=== PATIENT | male | born 1945 | race Caucasian/White ===

== ENCOUNTER → 2020-05-13 | Outpatient (CLI) | payer MEDICARE | END | disposition home or self-care (01) | LOC: SHCH 12:38 | PROVIDERS: ATTEND Internal Medicine Cardiovascular Disease | DX: T82.110A Breakdown (mechanical) of cardiac electrode, initial encounter (principal) | CPT/HCPCS: 93306; 93356 ==

== ENCOUNTER → 2020-06-24 | Outpatient (CLI) | payer OTHER | END | disposition home or self-care (01) | LOC: OIH 09:17 | PROVIDERS: ATTEND Internal Medicine Cardiovascular Disease | DX: Z13.6 Encounter for screening for cardiovascular disorders (principal) | CPT/HCPCS: 75571 ==

== ENCOUNTER 2021-03-06 07:33 | Day surgery (SDC) | payer MEDICARE ==
[2021-02-28 12:22] LABS: BASOPHILS % (AUTO) 0.6 % (0.0-5.0); EOSINOPHILS % (AUTO) 2.3 % (0.0-8.0); HEMATOCRIT 39.7 % (42-54); LYMPHOCYTES % (AUTO) 14.8 % (21.0-51.0); MEAN CORPUSCULAR HEMOGLOBIN 29.3 pg (27.0-33.0); MEAN CORPUSCULAR VOLUME 86.3 fL (79-99); NEUTROPHILS % (AUTO) 69.9 % (40.0-77.0); PLATELET COUNT (AUTO) 328 K/uL (130-400); RED CELL DISTRIBUTION WIDTH 12.9 % (11.0-15.5); WHITE BLOOD COUNT (AUTO) 7.1 K/uL (4.8-10.8)
[2021-02-28 12:23] LABS: APPEARANCE,URINE Clear (CLEAR); BILIRUBIN,URINE Negative (NEGATIVE); COLOR,URINE Yellow (YELLOW); GLUCOSE, URINE (UA) Negative (NEGATIVE); KETONES,URINE >=80 mg/dL (NEGATIVE); LEUKOCYTE ESTERASE ,URINE Negative (NEGATIVE); NITRATE,URINE Negative (NEGATIVE); OCCULT BLOOD,URINE Negative (NEGATIVE); PROTEIN,URINE Negative (NEGATIVE)
[2021-02-28 12:36] LABS: CREATININE 0.9 mg/dL (0.5-1.5); POTASSIUM 3.4 mmol/L (3.5-5.1)
[2021-02-28 12:38] LABS: INR 1.01 (0.85-1.15)
[2021-02-28 12:39] LABS: PARTIAL THROMBOPLASTIN TIME 37.9 SEC (26.3-35.5)
[2021-02-28 12:53] LABS: BACTERIA,URINE Rare /HPF (None Seen); RBC,URINE 0-1 /HPF (0-1); WBC,URINE 0-1 /HPF (0-1)
[2021-02-28 12:54] LABS: SQUAMOUS EPITHELIAL CELL,UR None Seen /HPF (0-2)
[2021-03-05 10:20] VITALS: BP 147/74
[~2021-03-06] VITALS: Ht 177.8 cm; Wt 122.5 kg
[2021-03-06] VITALS (13 sets, daily range): BP systolic 137–178; BP diastolic 56–78
[~2021-03-06 07:33] MED LIST: AMLO-257 PO; ASPI-1005 PO; CARV12.511 PO; GABA300S PO; GLUC-56 PO; MAGN100T5 PO; MELA10TA2 PO; OLME-11 PO; TADA5TAB13 PO; TAMS-1 PO; THYROID NP PO; TIZA2CAP9 PO; TOLT4CAP13 PO
[2021-03-06] MEDS: GENTAMICIN 80 MG/NS 100 ML PB 100 ML IV SCH ×2 (09:50→10:40)
[2021-03-06] MEDS: CEFTRIAXONE SODIUM 1 GM IVP SCH ×2 (09:50→14:43)
[2021-03-06] MEDS ORDERED: LACTATED RINGERS 1000ML 1,000 ML IV ONE (09:52)
[2021-03-06] MEDS ORDERED: DEXAMETHASONE SOD PHOSPHATE 10MG/ML 1ML VIAL ONE (10:59)
[2021-03-06] MEDS ORDERED: SUCCINYLCHOLINE 200MG/10ML SYR ONE (10:59)
[2021-03-06] MEDS ORDERED: LIDOCAINE PF 100MG/5ML (2%) SYRINGE 5ML ONE (10:59)
[2021-03-06] MEDS ORDERED: MIDAZOLAM HCL 1 MG/ML 2ML VIAL ONE (10:59)
[2021-03-06] MEDS ORDERED: ROCURONIUM 10MG/1ML SYR 10 MG/ML ML ONE (10:59)
[2021-03-06] MEDS ORDERED: NEOSTIGMINE 5MG/5ML SYR IV ONE (10:59)
[2021-03-06] MEDS ORDERED: GLYCOPYRROLATE 1 MG/5 ML SYRINGE ONE (10:59)
[2021-03-06] MEDS ORDERED: PROPOFOL 10 MG/ML 20ML VIAL IV ONE (10:59)
[2021-03-06] MEDS ORDERED: FENTANYL CITRATE PF 50 MCG/1 ML 2ML VIAL ONE (11:00)
== END 2021-03-06 13:40 | disposition home or self-care (01) ==
LOC: DAH 07:33
PROVIDERS: ATTEND Urology
DX: N40.1 Benign prostatic hyperplasia with lower urinary tract symptoms (principal); Z20.822 Contact with and (suspected) exposure to COVID-19; N32.89 Other specified disorders of bladder; I10 Essential (primary) hypertension; E66.9 Obesity, unspecified; E78.5 Hyperlipidemia, unspecified; Z90.49 Acquired absence of other specified parts of digestive tract; Z98.890 Other specified postprocedural states; Z79.01 Long term (current) use of anticoagulants
CPT/HCPCS: 36415; 52648; 71045; 80048; 81001; 85025; 85610; 85730; 87088; 87635; 93005; A4215; A4221; A4222; A4223; A4354; A4358; A4600; A4663; A6260; C9803; J0330; J0696; J1100; J1580; J2001; J2250; J2704; J2710; J3010; J3490; J7120 ×2

== ENCOUNTER → 2021-12-25 | Outpatient (CLI) | payer MEDICARE ==
[~2021-12-25] MED LIST changes: -TOLT4CAP13 PO; +TOLT4CAP27 PO
== END | disposition home or self-care (01) ==
LOC: SHCH 09:35
PROVIDERS: ATTEND Internal Medicine Cardiovascular Disease
DX: I36.1 Nonrheumatic tricuspid (valve) insufficiency (principal); I11.9 Hypertensive heart disease without heart failure; Z95.2 Presence of prosthetic heart valve
CPT/HCPCS: 93306

== ENCOUNTER → 2022-02-18 | Outpatient (CLI) | payer MEDICARE | END | disposition home or self-care (01) | LOC: RAH 10:03 | PROVIDERS: ATTEND Neurological Surgery | DX: M47.26 Other spondylosis with radiculopathy, lumbar region (principal); M51.16 Intervertebral disc disorders with radiculopathy, lumbar region; M48.07 Spinal stenosis, lumbosacral region | CPT/HCPCS: 72148 ==

== ENCOUNTER → 2022-04-28 | Outpatient (CLI) | payer MEDICARE | END | disposition home or self-care (01) | LOC: SHCH 09:48 | PROVIDERS: ATTEND Internal Medicine Cardiovascular Disease | DX: I65.23 Occlusion and stenosis of bilateral carotid arteries (principal) | CPT/HCPCS: 93880 ==

== ENCOUNTER → 2022-05-26 | Outpatient (CLI) | payer MEDICARE ==
[2022-05-26 12:34] LABS: BASOPHILS % (AUTO) 0.9 % (0.0-5.0); HEMATOCRIT 36.4 % (42-54); LYMPHOCYTES % (AUTO) 11.7 % (21.0-51.0); MEAN CORPUSCULAR HEMOGLOBIN 30.4 pg (27.0-33.0); MEAN CORPUSCULAR HGB CONC 33.8 g/dL (32.0-36.0); MEAN CORPUSCULAR VOLUME 89.9 fL (79-99); MONOCYTES % (AUTO) 8.4 % (3.0-13.0); NEUTROPHILS % (AUTO) 78.2 % (40.0-77.0); PLATELET COUNT (AUTO) 379 K/uL (130-400); RED BLOOD CELL COUNT(AUTO) 4.05 MIL/uL (4.50-6.20); RED CELL DISTRIBUTION WIDTH 13.6 % (11.0-15.5); WHITE BLOOD COUNT (AUTO) 11.2 K/uL (4.8-10.8)
[2022-05-26 12:37] LABS: APPEARANCE,URINE CLEAR (CLEAR); BILIRUBIN,URINE NEGATIVE (NEGATIVE); COLOR,URINE YELLOW (YELLOW); GLUCOSE, URINE (UA) NEGATIVE (NEGATIVE); KETONES,URINE NEGATIVE (NEGATIVE); LEUKOCYTE ESTERASE ,URINE TRACE (NEGATIVE); NITRATE,URINE NEGATIVE (NEGATIVE); OCCULT BLOOD,URINE NEGATIVE (NEGATIVE); PH,URINE 7.5 (5.0-8.0); PROTEIN,URINE NEGATIVE (NEGATIVE); UROBILINOGEN,URINE 0.2 mg/dL (0.2-1.0)
[2022-05-26 12:52] LABS: ALBUMIN 3.6 g/dL (3.5-5.0); CREATININE 0.9 mg/dL (0.5-1.5); POTASSIUM 4.5 mmol/L (3.5-5.1); TOTAL PROTEIN, SERUM 7.2 g/dL (6.0-8.3)
[2022-05-26 12:54] LABS: BACTERIA,URINE Rare /HPF (None Seen); RBC,URINE 0-1 /HPF (0-1); SQUAMOUS EPITHELIAL CELL,UR 0-2 /HPF (0-2); WBC,URINE 0-1 /HPF (0-1)
== END | disposition home or self-care (01) ==
LOC: LAB 11:28
PROVIDERS: ATTEND Physician Assistant
DX: I44.2 Atrioventricular block, complete (principal); I48.0 Paroxysmal atrial fibrillation; Z95.0 Presence of cardiac pacemaker
CPT/HCPCS: 36415; 80053; 81001; 85025

== ENCOUNTER 2022-05-29 09:00 | Observation (INO) | payer MEDICARE ==
[~2022-05-29] VITALS: Ht 177.8 cm; Wt 115.6 kg
[~2022-05-29 09:00] MED LIST changes: -GABA300S PO; -GLUC-56 PO; -MAGN100T5 PO; -MELA10TA2 PO; -TAMS-1 PO; -THYROID NP PO; -TIZA2CAP9 PO; -TOLT4CAP27 PO
[2022-05-29 11:52] LABS: BASOPHILS % (AUTO) 1.1 % (0.0-5.0); EOSINOPHILS % (AUTO) 0.2 % (0.0-8.0); HEMATOCRIT 40.5 % (42-54); LYMPHOCYTES % (AUTO) 15.6 % (21.0-51.0); MEAN CORPUSCULAR HEMOGLOBIN 30.2 pg (27.0-33.0); MEAN CORPUSCULAR HGB CONC 33.6 g/dL (32.0-36.0); MONOCYTES % (AUTO) 8.6 % (3.0-13.0); NEUTROPHILS % (AUTO) 73.3 % (40.0-77.0); PLATELET COUNT (AUTO) 298 K/uL (130-400); RED CELL DISTRIBUTION WIDTH 13.6 % (11.0-15.5); WHITE BLOOD COUNT (AUTO) 8.1 K/uL (4.8-10.8)
[2022-05-29 11:58] LABS: POTASSIUM 3.5 mmol/L (3.5-5.1)
[2022-06-02 09:13] VITALS: BP 150/68
[2022-06-02] MEDS ORDERED: GABA300C PO (11:34)
[2022-06-02] MEDS ORDERED: LEVO175C2 PO (11:34)
[2022-06-02] MEDS ORDERED: VITAMIN B1 PO (11:34)
[2022-06-02] MEDS ORDERED: EZET10TA48 PO (11:34)
[2022-06-02] MEDS ORDERED: CYAN250010 PO (11:34)
[2022-06-02] MEDS ORDERED: FERR-82 PO (11:36)
[2022-06-02] MEDS ORDERED: VITAMIN D3 PO (11:36)
[2022-06-02] MEDS ORDERED: CETI10TA57 PO (11:36)
[2022-06-02] MEDS ORDERED: MULT-1285 PO (11:36)
[2022-06-03] VITALS (22 sets, daily range): BP systolic 124–167; BP diastolic 59–95
[2022-06-03] MEDS ORDERED: LACTATED RINGERS 1000ML 1,000 ML IV ONE (06:44)
[2022-06-03] MEDS: CEFAZOLIN SODIUM 1 GM VIAL IVP SCH ×2 (07:00→09:30)
[2022-06-03] MEDS ORDERED: PROPOFOL 10 MG/ML 20ML VIAL IV ONE (07:03)
[2022-06-03] MEDS ORDERED: SUCCINYLCHOLINE CHLORIDE 20 MG/ML 10 ML VIAL ONE (07:03)
[2022-06-03] MEDS ORDERED: MIDAZOLAM HCL 1 MG/ML 2ML VIAL ONE (07:03)
[2022-06-03] MEDS ORDERED: GLYCOPYRROLATE 1 MG/5 ML SYRINGE ONE (07:03)
[2022-06-03] MEDS ORDERED: DEXAMETHASONE SOD PHOSPHATE 10MG/ML 1ML VIAL ONE ×2 (07:03→08:08)
[2022-06-03] MEDS ORDERED: LIDOCAINE PF 100MG/5ML (2%) SYRINGE 5ML ONE (07:03)
[2022-06-03] MEDS ORDERED: NEOSTIGMINE 5MG/5ML SYR IV ONE (07:03)
[2022-06-03] MEDS ORDERED: FENTANYL CITRATE PF 50 MCG/1 ML 2ML VIAL ONE (07:04)
[2022-06-03] MEDS ORDERED: ONDANSETRON 4MG INJ ONE ×2 (07:04→13:29)
[2022-06-03] MEDS ORDERED: ROCURONIUM 10MG/1ML SYR 10 MG/ML ML ONE ×2 (07:04→09:47)
[2022-06-03] MEDS ORDERED: PHENYLEPHRINE HCL 10 MG/ML 1ML VIAL IV ONE (08:08)
[2022-06-03] MEDS ORDERED: ARTIFICIAL TEARS 3.5 GM OINTMENT ONE (08:08)
[2022-06-03] MEDS ORDERED: BUPIVACAINE/EPI/PF 0.5% 30ML VIAL IJ ONE (08:30)
[2022-06-03] MEDS ORDERED: MORPHINE PF 100MG/10ML AMP IV ONE (08:30)
[2022-06-03] MEDS ORDERED: THROMBIN-JMI 20000 UNIT KIT TP ONE (08:30)
[2022-06-03] MEDS ORDERED: CEFAZOLIN SODIUM 1 GM VIAL ONE (08:30)
[2022-06-03] MEDS ORDERED: MORPHINE 2 MG SYG IVP PRN (13:00)
[2022-06-03] MEDS ORDERED: 0.9%NACL 10ML VIAL IVP PRN (13:00)
[2022-06-03] MEDS ORDERED: LACTATED RINGERS 1000ML 1,000 ML IV SCH (13:00)
[2022-06-03] MEDS ORDERED: PROMETHAZINE HCL 25 MG/ML 1ML AMPULE IM PRN (13:00)
[2022-06-03] MEDS: DEXAMETHASONE SOD PHOSPHATE 4 MG/ML 1ML VIAL IVP SCH ×3 (13:00→23:56)
[2022-06-03] MEDS ORDERED: HYDROCODONE/ACETAMINOPHEN 5/325 MG TAB PO PRN (13:00)
[2022-06-03] MEDS ORDERED: KETOROLAC 15MG/ML VIAL (15MG/ML) ONE (13:29)
[2022-06-03] MEDS ORDERED: MEPERIDINE-PF 25 MG/ML SYG ONE ×2 (13:30→13:48)
[2022-06-03] MEDS ORDERED: CEFAZOLIN SODIUM 3 GM in DEXTROSE 5%-WATER 100 ML IVP SCH (17:00)
[2022-06-03] MEDS ORDERED: CETIRIZINE HCL 5 MG TABLET PO SCH (21:00)
[2022-06-03] MEDS ORDERED: CARVEDILOL 12.5 MG TABLET PO SCH (21:00)
[2022-06-03] MEDS ORDERED: GABAPENTIN 300 MG CAPSULE PO SCH (21:00)
[2022-06-03] MEDS ORDERED: NON-FORMULARY MEDICATION 1 EACH (Cetirizine HCl 10 MG) PO SCH (21:00)
[2022-06-04 04:05] VITALS: BP 135/58
[2022-06-04] MEDS ORDERED: LEVOTHYROXINE 100 MCG TABLET ONE (04:51)
[2022-06-04] MEDS: CEFAZOLIN SODIUM 1 GM VIAL IVP SCH (05:00)
[2022-06-04] MEDS: DEXAMETHASONE SOD PHOSPHATE 4 MG/ML 1ML VIAL IVP SCH ×2 (05:38→12:45)
[2022-06-04] MEDS ORDERED: LEVOTHYROXINE 75 MCG TABLET PO SCH (06:30)
[2022-06-04] MEDS ORDERED: LEVOTHYROXINE 100 MCG TABLET PO SCH (06:30)
[2022-06-04] MEDS ORDERED: NON-FORMULARY MEDICATION 1 EACH (Levothyroxine Sodium (Levothyroxine) 175 MCG) PO SCH (07:30)
[2022-06-04 07:58] VITALS: BP 123/61
[2022-06-04] MEDS ORDERED: ASPIRIN 81MG CHEW TAB PO SCH (09:00)
[2022-06-04] MEDS ORDERED: FERROUS SULFATE 325 MG TABLET.DR PO SCH (09:00)
[2022-06-04] MEDS ORDERED: THIAMINE HCL 100 MG TABLET PO SCH (09:00)
[2022-06-04] MEDS ORDERED: CARVEDILOL 12.5 MG TABLET PO SCH (09:00)
[2022-06-04] MEDS ORDERED: CYANOCOBALAMIN (VITAMIN B-12) 1,000 MCG TABLET PO SCH (09:00)
[2022-06-04] MEDS ORDERED: NON-FORMULARY MEDICATION 1 EACH (Cyanocobalamin (Vitamin B-12) (Vitamin B12) 2,500 MCG) PO SCH (09:00)
[2022-06-04] MEDS ORDERED: NON-FORMULARY MEDICATION 1 EACH (Ferrous Sulfate (Iron) 325 MG) PO SCH (09:00)
[2022-06-04] MEDS ORDERED: VITAMIN D3 PO SCH (09:00)
[2022-06-04] MEDS ORDERED: VITAMIN B1 PO SCH (09:00)
[2022-06-04] MEDS ORDERED: EZETIMIBE 10 MG TAB PO SCH (09:00)
[2022-06-04] MEDS ORDERED: AMLODIPINE 5 MG TAB PO SCH (09:00)
[2022-06-04] MEDS ORDERED: OLMESARTAN HCTZ PO SCH (09:00)
[2022-06-04] MEDS ORDERED: MULTIVITAMIN TABLET PO SCH (09:00)
[2022-06-04 11:09] VITALS: BP 134/77
[2022-06-04 11:40] VITALS: BP 134/77
== END 2022-06-04 15:45 | disposition home or self-care (01) ==
LOC: EDSTATUS 06-02 15:00 → DAHIP 06-03 05:52 → 4AH 06-03 14:24
PROVIDERS: ADMIT Neurological Surgery; ATTEND Neurological Surgery
DX: M48.061 Spinal stenosis, lumbar region without neurogenic claudication (principal); Z20.822 Contact with and (suspected) exposure to COVID-19; I10 Essential (primary) hypertension; I25.10 Atherosclerotic heart disease of native coronary artery without angina pectoris; Z79.899 Other long term (current) drug therapy; Z79.82 Long term (current) use of aspirin; Z95.0 Presence of cardiac pacemaker
CPT/HCPCS: 80048; 85025; 87426; 36415; 71045; 63047; 63048 ×4; 96376 ×2; 96365; 96375; 72020; A6260 ×2; J1100 ×6; G0378 ×26; G0379; A4510; J7120 ×3; A4344; J3010; J0690 ×3; J3490 ×2; J2710; J0330; J2001; J2250; J7060; J2704; J2274; J2405 ×2; J2175 ×2; J1885; J2370; A4649 ×2; A4215; A4223; A4222; A4221; A4663; A4600